=== PATIENT | male | born 1970 | race Caucasian/White ===

== ENCOUNTER 2020-01-09 09:00 | Outpatient (RCR) | payer OTHER, SELFPAY | END 2020-01-09 23:59 | disposition home or self-care (01) | LOC: ANHAUDIO 09:00 | PROVIDERS: PCP Nurse Practitioner Family; Visit Provider Otolaryngology | DX: Z46.1 Encounter for fitting and adjustment of hearing aid (principal) | CPT/HCPCS: 99199; V5261 ==

== ENCOUNTER 2021-02-25 08:36 | Outpatient (CLI) | payer OTHER, SELFPAY ==
--- NOTE | 2021-02-25 | EST_ITS ---
Patient Info Name: Scott Rodrigues Age: 51 years : 1970 Gender: Male Ht: 72 in Wt: 245 lbs BSA: 2.41 m2 Exam Date: 02/25/2021 9:02 AM Exam Location: [facility] Stress Patient Status: Outpatient Admit Date: 02/25/2021 Staff Ordering Physician: Clayton, Joselyn SANONBERNARDINO Attending Provider: Clayton, Joselyn [facility] Exercise Technologist: Tess Adames CT Exercise Physician: Sin Hardin DO Exam Type: CA stress test treadmill Study Info An exercise stress test was performed. Summary 1. 1. Negative Veto exercise stress test for ischemic ST changes by ECG criteria. 2. 2. Good functional capacity, achieving 10 METs of workload. 3. 3. Baseline hypertension with hypertensive response to exercise. 4. 4. Appropriate HR response to exercise. 5. 5. Appropriate HR recovery at 1 minute post exercise. 6. 6. No imaging with stress testing. 7. 7. Patient informed of the above results. Protocol: Veto Stress ECG Details Stage: REST Duration (min): 1 min : 36 sec Speed (mph): 0.0 Grade (%): 0 HR (bpm): 68 SBP (mmHg): 148 DBP (mmHg): 71 METS: --- Stage: REST Duration (min): 13 min : 15 sec Speed (mph): 0.0 Grade (%): 0 HR (bpm): 68 SBP (mmHg): 148 DBP (mmHg): 71 METS: --- Stage: STAGE 1 Duration (min): 1 min : 0 sec Speed (mph): 1.7 Grade (%): 10 HR (bpm): 100 SBP (mmHg): 148 DBP (mmHg): 71 METS: --- Stage: STAGE 1 Duration (min): 2 min : 0 sec Speed (mph): 1.7 Grade (%): 10 HR (bpm): 110 SBP (mmHg): 148 DBP (mmHg): 71 METS: --- Stage: STAGE 1 Duration (min): 3 min : 0 sec Speed (mph): 1.7 Grade (%): 10 HR (bpm): 111 SBP (mmHg): 191 DBP (mmHg): 57 METS: --- Stage: STAGE 2 Duration (min): 1 min : 0 sec Speed (mph): 2.5 Grade (%): 12 HR (bpm): 120 SBP (mmHg): 191 DBP (mmHg): 57 METS: --- Stage: STAGE 2 Duration (min): 2 min : 0 sec Speed (mph): 2.5 Grade (%): 12 HR (bpm): 127 SBP (mmHg): 201 DBP (mmHg): 66 METS: --- Stage: STAGE 2 Duration (min): 3 min : 0 sec Speed (mph): 2.5 Grade (%): 12 HR (bpm): 132 SBP (mmHg): 201 DBP (mmHg): 66 METS: --- Stage: STAGE 3 Duration (min): 1 min : 0 sec Speed (mph): 3.4 Grade (%): 14 HR (bpm): 141 SBP (mmHg): 231 DBP (mmHg): 65 METS: --- Stage: STAGE 3 Duration (min): 2 min : 0 sec Speed (mph): 3.4 Grade (%): 14 HR (bpm): 142 SBP (mmHg): 231 DBP (mmHg): 65 METS: --- Stage: RECOVERY Duration (min): 1 min : 0 sec Speed (mph): 0.0 Grade (%): 0 HR (bpm): 124 SBP (mmHg): 212 DBP (mmHg): 61 METS: --- Stage: RECOVERY Duration (min): 2 min : 0 sec Speed (mph): 0.0 Grade (%): 0 HR (bpm): 100 SBP (mmHg): 212 DBP (mmHg): 61 METS: --- Stage: RECOVERY Duration (min): 3 min
== END 2021-02-25 08:37 | disposition home or self-care (01) ==
PROVIDERS: PCP Nurse Practitioner Family; Visit Provider Nurse Practitioner Family
DX: I10 Essential (primary) hypertension (principal)
CPT/HCPCS: 93017

== ENCOUNTER 2021-11-28 10:30 | Emergency (ER) | payer BC, SELFPAY ==
[2021-11-28 10:44] VITALS: BP 157/87; PULSE 84; RESP 16; TEMP 36.8; O2SAT 98
--- NOTE | 2021-11-28 11:15 | ED.URI ---
HPI - URI/Sore Throat General Chief Complaint: Upper Respiratory Infection Stated Complaint: Cough,Congestion Time Seen by Provider: 11/28/21 11:08 Source: patient and RN notes reviewed Mode of arrival: ambulatory Limitations: no limitations History of Present Illness HPI Narrative: Patient presents today complaining of 5-day history of body aches, diarrhea, nasal congestion and drainage. Denies fever or shortness of breath. He has been taking Aleve for his body aches with some relief. States 3 members of his family are currently COVID-19 positive. He came for COVID-19 test. MD elicited complaint: nasal congestion Related Data Home Medications Medication Instructions Recorded Confirmed atorvastatin 11/28/21 escitalopram oxalate mg 11/28/21 omeprazole 11/28/21 Allergies Allergy/AdvReac Type Severity Reaction Status Date / Time No Known Allergies Allergy Unverified 08/30/18 08:58 Review of Systems Review of Systems: CONSTITUTIONAL: Denies fever, chills, or sweats.+ Body aches EYES: Denies visual changes, redness, or discharge. ENT: Denies rhinorrhea, sore throat, or otalgia+ congestion, nasal drainage. CARDIOVASCULAR: Denies chest pain, palpitations, or edema. RESPIRATORY: Denies cough or dyspnea. GASTROINTESTINAL: Denies abdominal pain, nausea, vomiting. + Diarrhea GENITOURINARY: Denies dysuria or hematuria. SKIN: Denies rash, itching, or wounds. MUSCULOSKELETAL: Denies back pain, joint pain, or myalgia. NEUROLOGIC: Denies headache, numbness, tingling, or weakness. PSYCH: Denies depression or anxiety. PMFSH Family History Family History Father Family history of diabetes mellitus in first degree relative Family history of congestive heart failure Other Diabetes mellitus Family history of amyotrophic lateral sclerosis Family history of cardiovascular disease Social History Social History Alcohol intake: current Comments At time of signature, I have reviewed and agree with nursing past medical, surgical, social and family history unless otherwise noted. Please see nursing chart for further information. There is no relevant family history pertinent to the presenting complaint Exam Narrative: GENERAL: Well-appearing, well-nourished, and in no acute distress. HEAD: Normocephalic, atraumatic. EYES: EOMI. No redness or drainage. Conjunctivae normal. ENT: Mucous membranes pink and moist. Nares congested. No rhinorrhea. TMs normal bilaterally. Throat normal. Uvula midline. NECK: Normal AROM. Supple. No lymphadenopathy. CHEST: No respiratory distress. Clear to auscultation. HEART: Regular rate and rhythm. No murmur appreciated. Normal peripheral pulses. EXTREMITIES: Normal range of motion. No edema. SKIN: Warm, dry, no rash. Capillary refill normal. Normal skin turgor. NEURO: No focal deficits. Alert and oriented x3. Gait steady. PSYCH: Normal affect. No signs of depression or anxiety. Course Course Level of Care: Express Care Visit Vital Signs Vital signs: Vital Signs Temperature 98.3 F 11/28/21 10:44 Pulse Rate 84 11/28/21 10:44 Respiratory Rate 16 11/28/21 10:44 Blood Pressure 157/87 H 11/28/21 10:44 Pulse Oximetry 98 11/28/21 10:44 Temperature 98.3 F 11/28/21 10:44 Pulse Rate 84 11/28/21 10:44 Respiratory Rate 16 11/28/21 10:44 Blood Pressure 157/87 H 11/28/21 10:44 Pulse Oximetry 98 11/28/21 10:44 Reviewed. Pt has been instructed to follow up with his PCP regarding his elevated blood pressure today. MDM - URI/Sore Throat Differential Diagnosis Differential diagnosis: Likely upper respiratory infection, viral infection and other (COVID-19) Lab Data Attestation: I reviewed the patient's lab results. Labs: Lab Results 11/28/21 Range/Units 10:50 POC SARS CoV-2 Ag Negative (Negative) Critical Care Time
== END 2021-11-28 11:32 | disposition home or self-care (01) ==
PROVIDERS: Emergency Provider Nurse Practitioner; PCP Nurse Practitioner Family
DX: B34.9 Viral infection, unspecified (principal); Z20.822 Contact with and (suspected) exposure to COVID-19; E78.00 Pure hypercholesterolemia, unspecified; I10 Essential (primary) hypertension; K21.9 Gastro-esophageal reflux disease without esophagitis
CPT/HCPCS: 87426; 99213; C9803; G0463

== ENCOUNTER 2022-05-10 13:38 | Emergency (ER) | payer OTHER, BC, SELFPAY ==
[2022-05-10] VITALS (17 sets, daily range): BP systolic 131–195; BP diastolic 74–93; PULSE 60–86; RESP 12–19; TEMP 36.7; O2SAT 93–97
--- NOTE | ~2022-05-10 | XR_ITS ---
EXAMINATION: [id number] INDICATION: Right-sided chest pain, initial encounter TECHNIQUE: A frontal view of the chest and four views of the right ribs were obtained. COMPARISON: None. FINDINGS: There are displaced and overriding fractures at the lateral aspects of the right fifth, six th, and seventh ribs. There are nondisplaced fractures of the right eighth through 10th ribs. There a re minimal airspace opacities adjacent to the ribs. No pneumothorax is identified. There is no pleura l effusion. The cardiomediastinal silhouette is normal. IMPRESSION: 1. Displaced fractures of the right fifth through seventh ribs and nondisplaced fractures of the righ t eighth through 10th ribs. 2. Adjacent airspace opacities of the right lung could reflect atelectasis versus pulmonary contusion . Reviewed, dictated and finalized at location A. IMPRESSION: 1. Displaced fractures of the right fifth through seventh ribs and nondisplaced fractures of the right eighth through 10th ribs. 2. Adjacent airspace opacities of the right lung could reflect atelectasis vers us pulmonary contusion.
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
[2022-05-10] MEDS: HYDROmorphone HCL INJ (*CRX) 1 MG/ML SYR IV PUSH ×2 (14:37→17:53)
[2022-05-10] MEDS: ONDANSETRON INJ 4 MG/2 ML VIAL IV PUSH (14:38)
[2022-05-10] MEDS: SODIUM CHLORIDE 0.9% IV 1,000 ML 150 ML IV CONT (14:38)
[2022-05-10 14:40] LABS: Basophils Absolute Auto 0.1 K/mm3 (0.0-0.1); Basophils Percent Auto 0.4 % (0.2-1.2); Eosinophils Absolute Auto 0.2 K/mm3 (0-0.3); Eosinophils Percent Auto 1.6 % (0-4.4); Hematocrit 48.6 % (42.0-52.0); Hemoglobin 16.5 g/dL (14.0-18.0); Immature Granulocyte Absolute 0.04 K/mm3 (0.00-0.031); Immature Granulocyte Percent A 0.3 % (0-0.5); Lymphocytes Absolute Auto 2.12 K/mm3 (0.9-3.2); Lymphocytes Percent Auto 16.5 % (18.3-44.2); Mean Corpuscular Hemoglobin 30.6 pg (26-34); Mean Corpuscular Volume 90.2 fl (80-100); Mean Platelet Volume 11.2 fl (7.4-10.4); Monocytes Absolute Auto 0.7 K/mm3 (0.1-0.6); Monocytes Percent Auto 5.5 % (2.6-8.5); Neutrophils Absolute Auto 9.7 K/mm3 (1.3-6.7); Neutrophils Percent Auto 75.7 % (45.5-73.1); Platelet Count Result 196 k/mm3 (150-375); Red Blood Count 5.39 M/mm3 (4.6-6.20); Red Cell Distribution Width 13.9 % (11.5-14.5); White Blood Count 12.8 K/mm3 (4.5-10.0)
[2022-05-10 14:48] LABS: Alanine Aminotransferase 26 U/L (6-50); Albumin Level 4.9 g/dL (3.5-5.1); Alkaline Phosphatase 85 U/L (38-126); Anion Gap 7 mmol/L (8-16); Aspartate Amino Transferase 27 U/L (17-59); Bilirubin,Total 0.8 mg/dL (0.2-1.3); Blood Urea Nitrogen 20 mg/dL (9-20); Calcium 9.3 mg/dL (8.4-10.2); Carbon Dioxide 28 mmol/L (22-30); Chloride 105 mmol/L (98-107); Estimated CRCL calculation 90 ml/min; Estimated Glomerular Filt Rate > 60; Glucose 112 mg/dL (65-110); Potassium 4.2 mmol/L (3.4-5.0); Sodium 140 mmol/L (137-145)
[2022-05-10 14:51] LABS: Partial Thromboplastin Time 34.1 SECONDS (22.3-36.8)
[2022-05-10 15:17] LABS: SARS-CoV-2 RNA PCR Negative
== END 2022-05-10 18:03 | disposition short-term general hospital (02) ==
PROVIDERS: Emergency Provider Emergency Medicine; PCP Nurse Practitioner Family
DX: S22.41XA Multiple fractures of ribs, right side, initial encounter for closed fracture (principal); Z20.822 Contact with and (suspected) exposure to COVID-19; W17.89XA Other fall from one level to another, initial encounter
CPT/HCPCS: 36415; 71101; 80053; 85025; 85610; 85730; 96361; 96374; 96375; 96376; 99284; 99285; C9803; J1170; J2405; J7030; U0003; U0005

== ENCOUNTER 2022-05-23 15:26 | Outpatient (CLI) | payer BC, SELFPAY ==
--- NOTE | ~2022-05-23 | US_ITS ---
US renal BI 05/23/2022 16:14 Procedure: Realtime transabdominal ultrasound of the kidneys and bladder. Indication: Possible renal mass seen on outside CT Comparison: CT dated 05/22/2024 Findings: Renal echotexture is normal bilaterally without hydronephrosis, contour deforming mass or r enal calculus. The right kidney measures 11.6 cm and left kidney measures 11.3 cm. Bladder within no rmal limits. Impression: 1: Unremarkable renal ultrasound. No stones, masses or hydronephrosis. Reviewed, dictated and finalized at location A. Impression: 1: Unremarkable renal ultrasound. No stones, masses or hydronephrosis.
== END 2022-05-23 15:27 | disposition home or self-care (01) ==
PROVIDERS: PCP Nurse Practitioner Family; Visit Provider Nurse Practitioner Family
DX: N28.9 Disorder of kidney and ureter, unspecified (principal)
CPT/HCPCS: 76775

== ENCOUNTER → 2022-06-26 10:46 | Outpatient (CLI) | payer OTHER, SELFPAY ==
--- NOTE | ~2022-06-26 | XR_ITS ---
XR chest 2V DATE: 06/26/2022 11:36 INDICATION: Multiple right rib fractures TECHNIQUE: 2 views COMPARISON: 01/08/2009 portable AP chest FINDINGS: Multiple displaced right rib fractures are noted, including at least the fifth, sixth, inga nth and eighth ribs, with associated soft tissue swelling along the right lateral chest wall. The pne umothorax. No pleural effusion. The lungs appear clear of infiltrate or consolidation. Normal heart size. No hilar or mediastinal enlargement. IMPRESSION: Multiple displaced right rib fractures with associated soft tissue swelling; no pneumotho rax or pleural effusion Reviewed, dictated and finalized at location B. IMPRESSION: Multiple displaced right rib fractures with associated soft tissue swelling; no pneumothorax or pleural effusion
== END ==
PROVIDERS: PCP Nurse Practitioner Family; Visit Provider Nurse Practitioner Family
DX: S22.41XA Multiple fractures of ribs, right side, initial encounter for closed fracture (principal); X58.XXXA Exposure to other specified factors, initial encounter
CPT/HCPCS: 71046

== ENCOUNTER 2025-05-22 08:01 | Outpatient (CLI) | payer BC, SELFPAY ==
--- NOTE | ~2025-05-22 | CT_ITS ---
CT Scan of the Chest without Contrast: Clinical Indication: Lung cancer screening, nicotine dependence Technique: Contiguous sections were acquired throughout the chest without intravenous contrast. Dose reduction technique was used on this scan by utilizing automated exposure control and iterative recon struction technique. The dose-length product (DLP) was 217.62 mGy-cm. Findings: There is no evidence of any significant mediastinal, hilar or axillary lymphadenopathy. The mediastin al soft tissues appear normal. There is no evidence of pleural or pericardial effusion. The lungs are clear. No pulmonary nodules or infiltrates are noted. Images through the upper abdomen reveal no abnormalities. Impression: Lung RADS 1: Negative. 12 month follow-up screening CT advised. Reviewed, dictated and finalized at location . Impression: Lung RADS 1: Negative. 12 month follow-up screening CT advised.
== END 2025-05-22 08:02 | disposition home or self-care (01) ==
LOC: MICIMG 08:02
PROVIDERS: PCP Nurse Practitioner Family; Visit Provider Family Medicine
DX: Z12.2 Encounter for screening for malignant neoplasm of respiratory organs (principal); Z87.891 Personal history of nicotine dependence
CPT/HCPCS: 71271